=== PATIENT | female | born 1990 | race Two or more races ===

== ENCOUNTER 2024-07-21 13:55 | Emergency (ER) | payer MEDICAID ==
[~2024-07-21] VITALS: Ht 157.5 cm; Wt 90.0 kg
[2024-07-21 13:58] VITALS: O2SAT 100
[2024-07-21] MEDS: FUROSEMIDE 40MG/4ML VIAL IM ONE (15:15)
[2024-07-21] MEDS: KETOROLAC 30MG/ML VIAL IM ONE (15:15)
[2024-07-21] MEDS: ACETAMINOPHEN 325MG TABLET PO ONE (15:15)
[2024-07-21 16:17] LABS: CHLORIDE 103 mEq/L (98-107); POTASSIUM 3.7 mEq/L (3.5-5.1); SODIUM 139 mEq/L (136-145)
[2024-07-21 16:18] LABS: CARBON DIOXIDE 30 mEq/L (21-32)
[2024-07-21 16:23] LABS: CREATININE 0.6 mg/dL (0.6-1.0); GLUCOSE 93 mg/dL (70-105)
[2024-07-21 16:24] LABS: UREA NITROGEN BLOOD 10 mg/dL (9-23)
[2024-07-21 16:25] LABS: ALANINE AMINOTRANSFERASE 42 IU/L (10-49); ALBUMIN 4.3 g/dL (3.2-4.8); ASPARTATE AMINOTRANSFERASE 23 IU/L (<34)
[2024-07-21 16:26] LABS: BILIRUBIN TOTAL 0.2 mg/dL (0.1-1.0); PROTEIN TOTAL 7.9 g/dL (6.0-8.3)
[2024-07-21 16:28] LABS: T4 FREE 1.32 ng/dL (0.89-1.76); THYROID STIMULATING HORMONE 1.03 uIU/mL (0.55-4.78)
[2024-07-21 16:29] LABS: TROPONIN I HIGH SENSITIVITY < 4 ng/L (3.0-34)
[2024-07-21 16:37] LABS: BASOPHILS % 0.4 % (0.0-2.0); EOSINOPHILS % 1.1 % (0.0-5.0); HEMATOCRIT. 29.8 % (36.0-48.0); HEMOGLOBIN. 9.9 g/dL (12.0-16.0); LYMPHOCYTES % 31.1 % (20.0-50.0); MEAN CORPUSCULAR HEMOGLOBIN 30.3 pg (28.0-32.0); MEAN CORPUSCULAR HGB CONC 33.3 g/dL (31.0-37.0); MEAN CORPUSCULAR VOLUME 90.9 fL (81.0-99.0); MEAN PLATELET VOLUME 7.8 fl (7.4-10.4); MONOCYTES % 7.2 % (2.0-8.0); NEUTROPHILS % 60.2 % (40.0-76.0); PLATELET 375 x1000/uL (130-400); RED BLOOD CELL COUNT 3.28 mill/uL (4.2-5.4); RED CELL DISTRIBUTION WIDTH 14.3 % (11.6-14.6); WHITE BLOOD COUNT 6.8 x1000/uL (4.5-11.0)
[2024-07-21] MEDS ORDERED: FLUT9.9S BOTHNSTRLS (17:00)
[2024-07-21] MEDS ORDERED: P50 MT (17:00)
[2024-07-21] MEDS ORDERED: AZIT250T12 MT (17:00)
[2024-07-21 17:52] VITALS: BP 150/95; PULSE 100; RESP 14; TEMP 36.3; O2SAT 97
== END 2024-07-21 17:51 | disposition home or self-care (01) ==
LOC: ER 13:55
DX: J01.90 Acute sinusitis, unspecified (principal); R60.0 Localized edema; Z79.899 Other long term (current) drug therapy
CPT/HCPCS: 80053; 81025; 83880; 84439; 83735; 84443; 85025; 84484; 36415; 71045; 93005; 96372; 99285; J1940; J1885; Z7610